=== PATIENT | male | born 1950 | race Caucasian/White ===

== ENCOUNTER 2021-05-29 06:00 | Outpatient (RCR) | payer MEDICARE, OTHER, SELFPAY | END 2021-06-27 23:59 | disposition home or self-care (01) | LOC: WPT 06:00 | PROVIDERS: Referring Provider Student in an Organized Health Care Education/Training Program; Visit Provider Student in an Organized Health Care Education/Training Program | DX: M54.50 Low back pain, unspecified (principal) | CPT/HCPCS: 97110; 97112; 97140; 97162; 97530 ==

== ENCOUNTER 2021-06-28 06:00 | Outpatient (RCR) | payer MEDICARE, OTHER, SELFPAY | END 2021-07-28 23:59 | disposition home or self-care (01) | LOC: WPT 06:00 | PROVIDERS: Referring Provider Student in an Organized Health Care Education/Training Program; Visit Provider Student in an Organized Health Care Education/Training Program | DX: M54.50 Low back pain, unspecified (principal) | CPT/HCPCS: 97110; 97112; 97140; 97530 ==

== ENCOUNTER → 2022-01-27 10:22 | Outpatient (BNVA) | payer MEDICARE, OTHER, SELFPAY | PROVIDERS: PCP Nurse Practitioner; Visit Provider Nurse Practitioner Family | DX: R79.89 Other specified abnormal findings of blood chemistry (principal); R74.8 Abnormal levels of other serum enzymes; Z12.5 Encounter for screening for malignant neoplasm of prostate | CPT/HCPCS: 80053; 83036; G0103 ==

== ENCOUNTER 2022-08-18 11:28 | Outpatient (CLI) | payer MEDICARE, OTHER, SELFPAY ==
--- NOTE | 2022-08-18 | ECG_ITS ---
[facility] Test Date: 2022-08-18 Pat Name: Daniel Hinton Department: Room: Gender: Male Transmission Inspector: : 1950 Requested By: Lawrence Manley Order Number: [id number] Stack MD: Suad Mcallister M.D. Interpretive Statements NAME OF STUDY: TREADMILL STRESS TEST INDICATION: Chest Pain Baseline blood pressure of 22/77 mm Hg, heart rate of 73 beats per minute and oxygen saturation 92%. EKG showed sinus rhythm, normal axis with normal ST-Ts. The patient exercised for 7 minutes 9 seconds on a standard Jake protocol. Patient attained a maximum heart rate of 151 beats per minute(101 % of the maximum predicted heart rate) with a blood pressure at the peak exercise of 156/87 mm Hg oxygen saturation of 92%. The EKG at the peak exercise revealed tachycardia with no significant ST-T wave changes. Isolated PVCs noted at peak exercise. Patient did not have any chest pain or any significant arrhythmis with the exercise During the recovery phase, there were no new changes. Isolated PVCs noted in recovery. Blood pressure at the end of the recovery phase was 142/77 mm Hg with a heart rate of 83 beats per minute and saturation of 92%. CONCLUSION: 1. Normal EKG response to treadmill exercise. 2. No exercise-induced chest pain or cardiac arrhythmia. 3. Excellent exercise tolerance, attained a maximum of 10.2 METs. 4. Baseline normal blood pressure with normal response to exercise. Electronically Signed On 08-19-2022 16:16:00 CDT by Suad Mcallister M.D. [id number]
[2022-08-18 11:45] VITALS: BMI 27.3
[2022-08-18 12:19] VITALS: BP 142/78; PULSE 93
== END 2022-08-18 11:29 | disposition home or self-care (01) ==
LOC: CDL 11:29
PROVIDERS: PCP Family Medicine; Visit Provider Family Medicine
DX: E11.9 Type 2 diabetes mellitus without complications (principal); K75.81 Nonalcoholic steatohepatitis (NASH); Z82.49 Family history of ischemic heart disease and other diseases of the circulatory system
CPT/HCPCS: 93017

== ENCOUNTER 2024-03-31 06:30 | Outpatient (RCR) | payer MEDICARE, OTHER, SELFPAY | END 2024-04-27 23:59 | disposition home or self-care (01) | LOC: WPT 06:30 | PROVIDERS: Visit Provider Family Medicine | DX: M65.221 Calcific tendinitis, right upper arm (principal) | CPT/HCPCS: 97110; 97112; 97162; 97530 ==

== ENCOUNTER 2024-04-28 06:00 | Outpatient (RCR) | payer MEDICARE, OTHER, SELFPAY | END 2024-05-28 23:59 | disposition home or self-care (01) | LOC: WPT 06:00 | PROVIDERS: Visit Provider Family Medicine | DX: M65.221 Calcific tendinitis, right upper arm (principal) | CPT/HCPCS: 97110; 97112; 97140; 97530 ==